=== PATIENT | male | born 1965 | race African-American/Black ===

== ENCOUNTER → 2019-04-28 | Outpatient (CLI) | payer OTHER ==
[~2019-04-28] MED LIST: ASPIRIN ADULT L81 M1 PO; HUMALOG100 UNIT/1 SQ; LIPITOR40 MG PO; METFORMIN1000 MG PO; MOTRIN800 MG PO; NOVOLOG 70/30 M10 ML SC; OZEMPIC0.25 MG/01 SQ; ULTRAM50 MG PO; ZESTRIL,PRINIVIL5 MG PO
--- NOTE | 2019-04-28 11:17 | NUR ---
INFORMED SIGNED CONSENT OBTAINED FOR CGXT WITH DR BARNARD. RESTING EKG NSR HR 70 BP 138/80 IN SUPINE POSITION STANDING HR 89 BP 130/70. PT COMPLETED 7:30 OF A PAUL PROTOCOL WITH PT COMPLETING 1:30 OF STAGE III AT 3.4 MPH AND A 14% GRADE. PT REACHED A PEAK HR OF 164 WHICH REPRESENTS 97% OF PREDICTED MAXIMUM AND A PEAK BP OF 190/90. RARE PVC NOTED. NO ST CHANGES SEEN. TEST TERMINATED DUE TO FATIGUE. LAST RECOVERY HR OF 110 BP 154/90. PT IN STABLE CONDITION, AWAITING NUCLEAR IMAGES.
== END | disposition home or self-care (01) ==
LOC: CARD 01:50
DX: R94.31 Abnormal electrocardiogram [ECG] [EKG] (principal)

== ENCOUNTER → 2019-06-10 | Outpatient (CLI) | payer OTHER | END | disposition home or self-care (01) | LOC: LAB 06:09 | DX: R80.9 Proteinuria, unspecified (principal) ==

== ENCOUNTER → 2021-01-18 | Outpatient (CLI) | payer OTHER ==
[2021-01-18 08:51] LABS: ALKALINE PHOSPHATASE 65 U/L (45-117); BUN 17 mg/dl (7-24); CHLORIDE 107 mmol/L (98-107); CHOLESTEROL 131 mg/dL (<200); CREATININE 0.91 mg/dL (0.70-1.30); HDL CHOLESTEROL 41 mg/dl (40-60); LDL CHOLESTEROL 59 mg/dL (9-159); POTASSIUM 3.9 mmol/L (3.5-5.1); SGOT/AST 13 IU/L (3-35); SGPT/ALT 28 U/L (12-78); SODIUM 140 mmol/L (136-145); TOTAL PROTEIN 7.6 gm/dL (6.4-8.2); TRIGLYCERIDES 157 mg/dl (<150); VLDL CHOLESTEROL 31 mg/dL (6-40)
[2021-01-18 09:20] LABS: VITAMIN D, 25-HYDROXY 45.8 ng/mL (30-100)
== END | disposition home or self-care (01) ==
LOC: LAB 07:29
PROVIDERS: ATTEND Internal Medicine Endocrinology, Diabetes & Metabolism
DX: E11.65 Type 2 diabetes mellitus with hyperglycemia (principal); E55.9 Vitamin D deficiency, unspecified; G62.9 Polyneuropathy, unspecified

== ENCOUNTER → 2021-08-24 | Outpatient (CLI) | payer OTHER | END | disposition home or self-care (01) | LOC: COVID19 15:44 | PROVIDERS: ATTEND Internal Medicine | DX: Z11.52 Encounter for screening for COVID-19 (principal) ==

== ENCOUNTER → 2022-05-02 | Outpatient (CLI) | payer OTHER | END | disposition home or self-care (01) | LOC: US 09:30 | PROVIDERS: ATTEND Physician Assistant | DX: M25.562 Pain in left knee (principal) ==

== ENCOUNTER → 2024-04-24 | Outpatient (CLI) | payer OTHER | END | disposition home or self-care (01) | LOC: CARD 04-06 08:00 | PROVIDERS: ATTEND Physician Assistant | DX: R00.2 Palpitations (principal) ==

== ENCOUNTER → 2024-06-03 | Outpatient (CLI) | payer OTHER | END | disposition home or self-care (01) | LOC: CARD 05-27 07:30 | PROVIDERS: ATTEND Internal Medicine Cardiovascular Disease | DX: I51.7 Cardiomegaly (principal); R00.2 Palpitations; I49.3 Ventricular premature depolarization ==